=== PATIENT | male | born 1985 | race Caucasian/White ===

== ENCOUNTER → 2018-11-27 13:28 | Outpatient (CLI) | payer OTHER ==
--- NOTE | 2018-12-05 14:03 | EC ---
PATIENT:DENNIS CORTEZ DATE OF SERVICE: 11/27/18 SEX: M MEDICAL RECORD: [id number] DATE OF : [birth year] [facility] AGE OF PATIENT: 33 ADMISSION DATE: 11/27/18 REFERRING PHYSICIAN: INTERPRETING PHYSICIAN: TOM RAHMAN MD ECHOCARDIOGRAM REPORT ECHO CHARGES 4 ECHO COMPLETE Date: 11/27/18 CLINICAL DIAGNOSIS: ARRHYTHMIA/HTN/MURMUR/VINES/ PALPITATIONS ECHOCARDIOGRAPHIC MEASUREMENTS (adult normal given) AC root (d.<3.7cm) 3.3 cm LV Septum d (<1.2 cm> 1.2 cm Valve Excursion 2.4 cm LV Septum (systole) 1.8 cm Left Atria (s.<4.0cm> 3.9 cm LVPW d(<1.2cm) 1.5 cm RV (d.<2.3cm) 2.9 cm LVPW (sytole) 1.7 cm LV diastole(<5.6CM) 4.5 cm MV E-F(>70mm/sec) cm LV systole 2.5 cm LVOT Diameter 2.0 cm MV exc.(>10mm) cm Est.ejection fraction (50-75%) % DOPPLER: LVIT cm/sec A 51.0 cm/sec E 67.0 cm/sec LA cm/sec RVSP 17.1 mmHg LVOT 131 cm/sec AOP1/2T m/s Asc. Ao 126 cm/sec RVOT 60.0 cm/sec RA cm/sec PA 104 cm/sec AV Gradient Peak 6.4 mmHg AV Mean 3.8 mmHg AV Area 3.1 cm MV Gradient Peak 3.0 mmHg MV Mean 1.1 mmHg MV Area cm COMMENTS: OP - HC [employer]: 1 SANTOS YESENIA Hospice Administrator: 3 Dr. Smith TAPE# PACS Pericardial Effusion N DATE OF SERVICE: Adequate 2D, color flow, spectral Doppler, and M-Mode. Borderline LVH. LV internal dimension is normal. Wall motion is normal. EF is greater than or equal to 55%. Aortic valve is tricuspid. No evidence of stenosis by Doppler interrogation. Left atrium is normal at 3.1 cm. Mitral valve shows no prolapse. Trace MR. Right-sided chambers grossly normal. Trace TR. TRANSINT:[id number] Voice Confirmation ID: [id number] DOCUMENT ID: [id number] ECHOCARDIOGRAM REPORT [id number] DENNIS CORTEZ,TOM Sánchez MD at 1403 CC: [id number] DICTATION DATE: 12/03/18 1247 TIME CHECKER: 12/03/18 1258 DEP CLI 11/27/18 [place] [id number]
--- NOTE | 2018-12-05 14:03 | ST ---
PATIENT:DENNIS CORTEZ MEDICAL RECORD: [id number] SEX: M LOCATION:[facility] [place] ORDER #: ADMISSION DATE: 11/27/18 AGE OF PATIENT: 33 REFERRING PHYSICIAN: INTERPRETING PHYSICIAN: TOM RAHMAN MD DATE OF SERVICE: 11/27/2018 Baseline ECG is normal. Exercised for 10 minutes on Shar protocol, maximum heart 110 beats per minute, 100% max predicted, no ECG changes of ischemia. No symptoms of ischemia. Normal blood pressure response to exercise. No arrhythmias noted. Good exercise tolerance for age. TRANSINT:[id number] Voice Confirmation ID: [id number] DOCUMENT ID: [id number] TOM RAHMAN MD at 1403 CC: [id number] DICTATION DATE: 12/04/18 1258 MANAGEMENT PROFESSIONALS: 12/04/18 1306 DEP CLI 11/27/[address] [id number]
== END | disposition home or self-care (01) ==
LOC: D.HCCARDIO 13:28
PROVIDERS: ATTEND Internal Medicine Interventional Cardiology
DX: R00.2 Palpitations (principal); R01.1 Cardiac murmur, unspecified